=== PATIENT | female | born 1960 | race African-American/Black ===

== ENCOUNTER 2020-10-13 00:09 | Emergency (ER) | payer MEDICAID, OTHER ==
[~2020-10-13] VITALS: Ht 165.1 cm; Wt 54.0 kg
[~2020-10-13 00:09] MED LIST: ARIP20TA2 GT; ATEN-42 PO; BUDE6HFA IH; CARI350T28 PO; DOCU-138 PO; FLUO40CA49 PO; FLUT1DIS IH; FLUT1DIS3 IH; GEMF600T90 PO; IPRA42SP2 NS; LORA1TAB PO; QUET50TA PO; TEMA15CA PO
[2020-10-13] MEDS ORDERED: IBUPROFEN 600MG TABLET PO STA (01:14)
[2020-10-13 01:24] VITALS: BP 146/81
[2020-10-13] MEDS ORDERED: IBUP-2029 PO (03:28)
== END 2020-10-13 03:47 | disposition home or self-care (01) ==
LOC: ER 00:09
DX: M25.572 Pain in left ankle and joints of left foot (principal); M25.512 Pain in left shoulder; F31.9 Bipolar disorder, unspecified; J44.9 Chronic obstructive pulmonary disease, unspecified; I10 Essential (primary) hypertension; F20.9 Schizophrenia, unspecified; Z85.9 Personal history of malignant neoplasm, unspecified; Z98.890 Other specified postprocedural states; Z88.0 Allergy status to penicillin; V03.90XA Pedestrian on foot injured in collision with car, pick-up truck or van, unspecified whether traffic or nontraffic accident, initial encounter; Y93.89 Activity, other specified; Y92.488 Other paved roadways as the place of occurrence of the external cause
CPT/HCPCS: 73590; 73610; 99284

== ENCOUNTER 2020-10-13 05:43 | Emergency (ER) | payer MEDICAID ==
[~2020-10-13] VITALS: Ht 162.6 cm; Wt 48.7 kg
[~2020-10-13 05:43] MED LIST changes: +IBUP-2029 PO
[2020-10-13] MEDS ORDERED: CEFTRIAXONE 1 G PREMIX 50 ML IV ONE (07:15)
[2020-10-13] MEDS ORDERED: TETANUS, DIPHTHERIA, PERTUSSIS VAC/PF 0.5ML (>7YR OLD) IM ONE (07:15)
[2020-10-13] MEDS ORDERED: IBUPROFEN 600MG TABLET PO ONE (07:15)
[2020-10-13 07:37] LABS: *AMPHETAMINES SCREEN URINE NEGATIVE (NEGATIVE); *BARBITURATES SCREEN URINE NEGATIVE (NEGATIVE); *BENZODIAZEPINES SCREEN URINE NEGATIVE (NEGATIVE); *COCAINE SCREEN URINE PRESUMTIVE POSITIVE (NEGATIVE); METHADONE URINE SCREEN NEGATIVE (NEGATIVE)
[2020-10-13 07:38] LABS: CANNABINOID URINE SCREEN NEGATIVE (NEGATIVE); OPIATES URINE SCREEN NEGATIVE (NEGATIVE); PHENCYCLIDINE URINE SCREEN NEGATIVE (NEGATIVE)
[2020-10-13 07:45] LABS: CLARITY URINE CLEAR (CLEAR); COLOR URINE YELLOW (YELLOW); KETONES URINE NEGATIVE (NEGATIVE); LEUKOCYTE ESTERASE URINE 3+ (NEGATIVE); NITRITE URINE NEGATIVE (NEGATIVE); OCCULT BLOOD URINE NEGATIVE (NEGATIVE); PROTEIN URINE NEGATIVE (NEGATIVE); SPECIFIC GRAVITY URINE 1.016 (1.005-1.030); UROBILINOGEN URINE 0.2 E.U./dL (0.2-1.0)
[2020-10-13 07:58] LABS: BASOPHILS % 0.6 % (0.0-2.0); EOSINOPHILS % 3.1 % (0.0-5.0); HEMATOCRIT. 34.2 % (36.0-48.0); HEMOGLOBIN. 11.2 g/dL (12.0-16.0); LYMPHOCYTES % 33.3 % (20.0-50.0); MEAN CORPUSCULAR HEMOGLOBIN 30.2 pg (28.0-32.0); MEAN CORPUSCULAR VOLUME 92.3 fL (81.0-99.0); MEAN PLATELET VOLUME 8.1 fl (7.4-10.4); MONOCYTES % 6.1 % (2.0-8.0); NEUTROPHILS % 56.9 % (40.0-76.0); PLATELET 299 x1000/uL (130-400); RED BLOOD CELL COUNT 3.71 mill/uL (4.2-5.4); RED CELL DISTRIBUTION WIDTH 15.5 % (11.6-14.6)
[2020-10-13 08:02] LABS: CHLORIDE 109 mEq/L (98-107)
[2020-10-13 08:06] LABS: ETHANOL BLOOD < 10 mg/dL
[2020-10-13] MEDS ORDERED: LORAZEPAM 1MG TABLET PO ONE (18:15)
[2020-10-13] MEDS: OLANZAPINE 5MG TABLET PO SCH (19:08)
[2020-10-14] MEDS: SULFAMETHOXAZOLE/TRIMETHOPRIM 800/160MG TABLET PO SCH ×3 (02:04→19:51)
[2020-10-14] MEDS: OLANZAPINE 5MG TABLET PO SCH (10:02)
[2020-10-15 08:00] VITALS: BP 132/88
== END 2020-10-15 10:11 | disposition home or self-care (01) ==
LOC: ER 05:43
DX: F23 Brief psychotic disorder (principal); F14.129 Cocaine abuse with intoxication, unspecified; R45.851 Suicidal ideations; S96.812A Strain of other specified muscles and tendons at ankle and foot level, left foot, initial encounter; L03.116 Cellulitis of left lower limb; F31.9 Bipolar disorder, unspecified; F17.210 Nicotine dependence, cigarettes, uncomplicated; Z75.1 Person awaiting admission to adequate facility elsewhere; Z20.822 Contact with and (suspected) exposure to COVID-19; Z88.0 Allergy status to penicillin; V03.90XA Pedestrian on foot injured in collision with car, pick-up truck or van, unspecified whether traffic or nontraffic accident, initial encounter; Y93.89 Activity, other specified; Y92.488 Other paved roadways as the place of occurrence of the external cause
CPT/HCPCS: 36415; 80053; 80305; 80320; 81003; 85025; 87040; 90471; 90715; 96365; 99285; J0696; Z7610; G0480

== ENCOUNTER 2021-05-06 02:44 | Inpatient (IN) | payer MEDICAID, OTHER ==
[~2021-05-06] VITALS: Ht 162.6 cm; Wt 53.6 kg
[2021-05-06] VITALS (7 sets, daily range): BP systolic 106–143; BP diastolic 73–81
[2021-05-06] MEDS ORDERED: ASPIRIN 81MG TABLET PO ONE (03:00)
[2021-05-06] MEDS ORDERED: NITROGLYCERIN 0.4MG TABLET SL SL PRN (03:00)
[2021-05-06 03:43] LABS: BASOPHILS % 0.8 % (0.0-2.0); EOSINOPHILS % 3.6 % (0.0-5.0); HEMATOCRIT. 37.5 % (36.0-48.0); HEMOGLOBIN. 12.3 g/dL (12.0-16.0); LYMPHOCYTES % 39.5 % (20.0-50.0); MEAN CORPUSCULAR HEMOGLOBIN 31.2 pg (28.0-32.0); MEAN CORPUSCULAR VOLUME 95.6 fL (81.0-99.0); MEAN PLATELET VOLUME 9.3 fl (7.4-10.4); MONOCYTES % 7.1 % (2.0-8.0); PLATELET 235 x1000/uL (130-400); RED BLOOD CELL COUNT 3.92 mill/uL (4.2-5.4); RED CELL DISTRIBUTION WIDTH 13.7 % (11.6-14.6)
[2021-05-06 03:49] LABS: CHLORIDE 110 mEq/L (98-107)
[2021-05-06] MEDS ORDERED: MORPHINE SULFATE 2 MG/ML CPJ (NOT FOR IM USE) IV PRN (10:00)
[2021-05-06] MEDS ORDERED: DIPHENHYDRAMINE 50MG/ML VIAL IV PRN (10:00)
[2021-05-06] MEDS ORDERED: ENOXAPARIN 40MG/0.4ML SYR SUBCUT SCH (10:00)
[2021-05-06] MEDS ORDERED: ONDANSETRON HCL 4MG/2ML INJ IV PRN (10:00)
[2021-05-06] MEDS ORDERED: GUAIFENESIN 200MG/10ML SUGAR FREE UDC PO PRN (10:00)
[2021-05-06] MEDS ORDERED: ACETAMINOPHEN 325MG TABLET PO PRN (10:00)
[2021-05-06] MEDS ORDERED: CLONIDINE 0.1MG TABLET PO PRN (10:00)
[2021-05-06] MEDS ORDERED: LORAZEPAM 2MG/ML CPJ IV PRN (10:00)
[2021-05-06] MEDS ORDERED: HYDROCODONE/ACETAMINOPHEN 5/325MG TABLET PO PRN (10:00)
[2021-05-06] MEDS ORDERED: DOCUSATE SODIUM 100MG CAPSULE PO PRN (10:00)
[2021-05-06] MEDS ORDERED: IPRATROPIUM/ALBUTEROL 0.5-3(2.5)MG/3ML NEB NEB PRN (10:00)
[2021-05-06] MEDS ORDERED: NA PHOS,M-B/NA PHOS,DI-BA ENEMA 118ML PR PRN (10:00)
[2021-05-06] MEDS ORDERED: MAGNESIUM/ALUMINUM HYDROXIDE/SIMETHICONE 30ML UDC PO PRN (10:00)
[2021-05-06] MEDS ORDERED: NALOXONE HCL 0.4MG/ML VIAL IV PRN (10:15)
[2021-05-06] MEDS ORDERED: DEXTROSE 50% WATER 50ML SYRINGE IV PRN (13:30)
[2021-05-06] MEDS: BLOOD SUGAR DIAGNOSTIC STRIP TEST SCH ×2 (16:32→21:02)
[2021-05-06] MEDS: INSULIN LISPRO 100 UNITS/ML SUBCUT SCH ×2 (16:32→21:00)
[2021-05-06] MEDS: GEMFIBROZIL 600MG TABLET PO SCH (16:43)
[2021-05-06 17:40] LABS: CHLORIDE 106 mEq/L (98-107)
[2021-05-06] MEDS: AMLODIPINE 2.5MG TABLET PO SCH (20:54)
[2021-05-06 21:59] LABS: *AMPHETAMINES SCREEN URINE NEGATIVE (NEGATIVE); *BARBITURATES SCREEN URINE NEGATIVE (NEGATIVE); *BENZODIAZEPINES SCREEN URINE NEGATIVE (NEGATIVE); CANNABINOID URINE SCREEN NEGATIVE (NEGATIVE); METHADONE URINE SCREEN NEGATIVE (NEGATIVE); OPIATES URINE SCREEN NEGATIVE (NEGATIVE); PHENCYCLIDINE URINE SCREEN NEGATIVE (NEGATIVE)
[2021-05-06 22:00] LABS: *COCAINE SCREEN URINE PRESUMTIVE POSITIVE (NEGATIVE)
[2021-05-07] VITALS (12 sets, daily range): BP systolic 106–145; BP diastolic 60–88
[2021-05-07 05:30] LABS: BASOPHILS % 0.6 % (0.0-2.0); EOSINOPHILS % 4.3 % (0.0-5.0); HEMATOCRIT. 41.5 % (36.0-48.0); HEMOGLOBIN. 13.6 g/dL (12.0-16.0); LYMPHOCYTES % 49.4 % (20.0-50.0); MEAN CORPUSCULAR HEMOGLOBIN 30.7 pg (28.0-32.0); MEAN CORPUSCULAR VOLUME 93.4 fL (81.0-99.0); MEAN PLATELET VOLUME 9.5 fl (7.4-10.4); MONOCYTES % 8.6 % (2.0-8.0); NEUTROPHILS % 37.1 % (40.0-76.0); PLATELET 251 x1000/uL (130-400); RED BLOOD CELL COUNT 4.44 mill/uL (4.2-5.4); RED CELL DISTRIBUTION WIDTH 13.4 % (11.6-14.6)
[2021-05-07 06:00] LABS: CHLORIDE 109 mEq/L (98-107)
[2021-05-07 06:06] LABS: LDL CHOLESTEROL 85 mg/dL (5-100)
[2021-05-07 06:07] LABS: HDL CHOLESTEROL 91 mg/dL (40-59); T4 FREE 1.16 ng/dL (0.76-1.46)
[2021-05-07] MEDS: BLOOD SUGAR DIAGNOSTIC STRIP TEST SCH ×4 (06:50→20:57)
[2021-05-07] MEDS: INSULIN LISPRO 100 UNITS/ML SUBCUT SCH ×4 (07:20→20:57)
[2021-05-07] MEDS: ASPIRIN 81MG EC TABLET PO SCH (08:14)
[2021-05-07] MEDS: AMLODIPINE 2.5MG TABLET PO SCH ×2 (08:14→21:00)
[2021-05-07] MEDS: GEMFIBROZIL 600MG TABLET PO SCH ×2 (08:14→17:28)
[2021-05-07] MEDS: ENOXAPARIN 30MG/0.3ML SYR SUBCUT SCH (08:15)
[2021-05-08] VITALS (8 sets, daily range): BP systolic 99–133; BP diastolic 59–75
[2021-05-08] MEDS: INSULIN LISPRO 100 UNITS/ML SUBCUT SCH (06:16)
[2021-05-08] MEDS: BLOOD SUGAR DIAGNOSTIC STRIP TEST SCH (06:16)
[2021-05-08 07:20] LABS: BASOPHILS % 0.7 % (0.0-2.0); EOSINOPHILS % 4.1 % (0.0-5.0); HEMATOCRIT. 39.8 % (36.0-48.0); HEMOGLOBIN. 13.1 g/dL (12.0-16.0); LYMPHOCYTES % 42.3 % (20.0-50.0); MEAN CORPUSCULAR HEMOGLOBIN 30.7 pg (28.0-32.0); MEAN CORPUSCULAR VOLUME 93.1 fL (81.0-99.0); MEAN PLATELET VOLUME 9.4 fl (7.4-10.4); MONOCYTES % 8.1 % (2.0-8.0); NEUTROPHILS % 44.8 % (40.0-76.0); PLATELET 259 x1000/uL (130-400); RED BLOOD CELL COUNT 4.27 mill/uL (4.2-5.4); RED CELL DISTRIBUTION WIDTH 13.6 % (11.6-14.6)
[2021-05-08 07:33] LABS: CHLORIDE 107 mEq/L (98-107)
[2021-05-08] MEDS: AMLODIPINE 2.5MG TABLET PO SCH (08:10)
[2021-05-08] MEDS: ASPIRIN 81MG EC TABLET PO SCH (08:11)
[2021-05-08] MEDS: ENOXAPARIN 30MG/0.3ML SYR SUBCUT SCH (08:11)
[2021-05-08] MEDS: GEMFIBROZIL 600MG TABLET PO SCH (08:11)
== END 2021-05-08 11:55 | disposition home or self-care (01) | DRG 203 ==
LOC: ER 03:08 → ENRESERV 10:52 → 3WST 11:36
PROVIDERS: ADMIT Internal Medicine; ATTEND Internal Medicine
DX: M94.0 Chondrocostal junction syndrome [Tietze] (principal); I31.3 Pericardial effusion (noninflammatory); R64 Cachexia; E11.22 Type 2 diabetes mellitus with diabetic chronic kidney disease; E11.65 Type 2 diabetes mellitus with hyperglycemia; E78.00 Pure hypercholesterolemia, unspecified; E78.5 Hyperlipidemia, unspecified; I12.9 Hypertensive chronic kidney disease with stage 1 through stage 4 chronic kidney disease, or unspecified chronic kidney disease; I25.10 Atherosclerotic heart disease of native coronary artery without angina pectoris; F14.90 Cocaine use, unspecified, uncomplicated; F17.210 Nicotine dependence, cigarettes, uncomplicated; J44.9 Chronic obstructive pulmonary disease, unspecified; N18.9 Chronic kidney disease, unspecified; Z79.82 Long term (current) use of aspirin; Z68.20 Body mass index [BMI] 20.0-20.9, adult; Z88.0 Allergy status to penicillin; Z79.899 Other long term (current) drug therapy; Z71.6 Tobacco abuse counseling; Z88.6 Allergy status to analgesic agent
CPT/HCPCS: 36415; 71045; 80048; 80053; 80061; 80305; 82962; 83036; 83880; 84439; 84443; 84484; 85025; 93005; 93306; 99285; J1650

== ENCOUNTER 2021-08-08 08:52 | Emergency (ER) | payer OTHER ==
[~2021-08-08] VITALS: Ht 157.5 cm; Wt 54.0 kg
[~2021-08-08 08:52] MED LIST changes: -IBUP-2029 PO
[2021-08-08 10:10] LABS: CHLORIDE 110 mEq/L (98-107)
[2021-08-08 10:13] LABS: BASOPHILS % 0.6 % (0.0-2.0); EOSINOPHILS % 3.6 % (0.0-5.0); HEMATOCRIT. 40.6 % (36.0-48.0); HEMOGLOBIN. 13.8 g/dL (12.0-16.0); LYMPHOCYTES % 31.1 % (20.0-50.0); MEAN CORPUSCULAR HEMOGLOBIN 31.5 pg (28.0-32.0); MEAN CORPUSCULAR VOLUME 92.4 fL (81.0-99.0); MEAN PLATELET VOLUME 9.2 fl (7.4-10.4); MONOCYTES % 6.1 % (2.0-8.0); NEUTROPHILS % 58.6 % (40.0-76.0); PLATELET 278 x1000/uL (130-400); RED BLOOD CELL COUNT 4.39 mill/uL (4.2-5.4); RED CELL DISTRIBUTION WIDTH 14.2 % (11.6-14.6)
[2021-08-08 10:15] LABS: ETHANOL BLOOD < 10 mg/dL
[2021-08-08 10:17] LABS: CLARITY URINE CLEAR (CLEAR); COLOR URINE YELLOW (YELLOW); KETONES URINE TRACE (NEGATIVE); LEUKOCYTE ESTERASE URINE 2+ (NEGATIVE); NITRITE URINE NEGATIVE (NEGATIVE); OCCULT BLOOD URINE NEGATIVE (NEGATIVE); PROTEIN URINE NEGATIVE (NEGATIVE); UROBILINOGEN URINE 0.2 E.U./dL (0.2-1.0)
[2021-08-08 10:45] LABS: *BARBITURATES SCREEN URINE NEGATIVE (NEGATIVE); *BENZODIAZEPINES SCREEN URINE NEGATIVE (NEGATIVE); *COCAINE SCREEN URINE PRESUMTIVE POSITIVE (NEGATIVE); METHADONE URINE SCREEN NEGATIVE (NEGATIVE); OPIATES URINE SCREEN NEGATIVE (NEGATIVE)
[2021-08-08 10:46] LABS: *AMPHETAMINES SCREEN URINE PRESUMTIVE POSITIVE (NEGATIVE); CANNABINOID URINE SCREEN NEGATIVE (NEGATIVE); PHENCYCLIDINE URINE SCREEN NEGATIVE (NEGATIVE)
[2021-08-08] MEDS: FLUOXETINE HCL 10 MG CAPSULE PO SCH (13:24)
[2021-08-08] MEDS: OLANZAPINE 5MG TABLET PO SCH ×2 (13:24→21:00)
[2021-08-09] MEDS: FLUOXETINE HCL 10 MG CAPSULE PO SCH (09:08)
[2021-08-09] MEDS: OLANZAPINE 5MG TABLET PO SCH ×2 (09:08→21:42)
[2021-08-10] MEDS: OLANZAPINE 5MG TABLET PO SCH (08:51)
[2021-08-10] MEDS: FLUOXETINE HCL 10 MG CAPSULE PO SCH (08:51)
[2021-08-10 14:22] VITALS: BP 110/80
== END 2021-08-10 14:30 ==
LOC: ER 08:52
DX: R45.851 Suicidal ideations (principal); E78.00 Pure hypercholesterolemia, unspecified; E11.9 Type 2 diabetes mellitus without complications; Z20.822 Contact with and (suspected) exposure to COVID-19; Z88.0 Allergy status to penicillin; Z88.5 Allergy status to narcotic agent; Z79.899 Other long term (current) drug therapy; Z98.890 Other specified postprocedural states; Z86.59 Personal history of other mental and behavioral disorders
CPT/HCPCS: 36415; 80053; 80305; 80320; 81003; 85025; 99285; C9803; U0003; U0005; G0480

== ENCOUNTER 2021-08-30 00:20 | Emergency (ER) | payer OTHER ==
[~2021-08-30] VITALS: Ht 165.1 cm; Wt 64.0 kg
[2021-08-30 03:04] LABS: *AMPHETAMINES SCREEN URINE PRESUMTIVE POSITIVE (NEGATIVE); *BARBITURATES SCREEN URINE NEGATIVE (NEGATIVE); *BENZODIAZEPINES SCREEN URINE NEGATIVE (NEGATIVE); *COCAINE SCREEN URINE PRESUMTIVE POSITIVE (NEGATIVE); CANNABINOID URINE SCREEN NEGATIVE (NEGATIVE); PHENCYCLIDINE URINE SCREEN NEGATIVE (NEGATIVE)
[2021-08-30 03:05] LABS: METHADONE URINE SCREEN NEGATIVE (NEGATIVE); OPIATES URINE SCREEN NEGATIVE (NEGATIVE)
[2021-08-30 04:13] LABS: BASOPHILS % 0.5 % (0.0-2.0); EOSINOPHILS % 3.4 % (0.0-5.0); HEMATOCRIT. 32.8 % (36.0-48.0); HEMOGLOBIN. 11.2 g/dL (12.0-16.0); LYMPHOCYTES % 43.5 % (20.0-50.0); MEAN CORPUSCULAR HEMOGLOBIN 31.6 pg (28.0-32.0); MEAN CORPUSCULAR VOLUME 92.7 fL (81.0-99.0); MEAN PLATELET VOLUME 8.2 fl (7.4-10.4); MONOCYTES % 6.8 % (2.0-8.0); NEUTROPHILS % 45.8 % (40.0-76.0); PLATELET 338 x1000/uL (130-400); RED BLOOD CELL COUNT 3.54 mill/uL (4.2-5.4); RED CELL DISTRIBUTION WIDTH 13.5 % (11.6-14.6)
[2021-08-30 04:47] LABS: CHLORIDE 113 mEq/L (98-107)
[2021-08-30 04:51] LABS: ETHANOL BLOOD < 10 mg/dL
[2021-08-30 20:07] VITALS: BP 115/67
[2021-08-30] MEDS ORDERED: TRAZODONE HCL 50MG TABLET PO SCH (21:00)
[2021-08-31] MEDS ORDERED: ARIPIPRAZOLE 5MG TABLET PO SCH (09:00)
== END 2021-08-30 20:23 ==
LOC: ER 00:20
DX: T40.5X1A Poisoning by cocaine, accidental (unintentional), initial encounter (principal); T43.621A Poisoning by amphetamines, accidental (unintentional), initial encounter; F20.9 Schizophrenia, unspecified; R45.851 Suicidal ideations; E11.22 Type 2 diabetes mellitus with diabetic chronic kidney disease; I12.9 Hypertensive chronic kidney disease with stage 1 through stage 4 chronic kidney disease, or unspecified chronic kidney disease; N18.9 Chronic kidney disease, unspecified; E78.00 Pure hypercholesterolemia, unspecified; Z20.822 Contact with and (suspected) exposure to COVID-19; Z85.038 Personal history of other malignant neoplasm of large intestine; Z88.0 Allergy status to penicillin; Z88.5 Allergy status to narcotic agent; Z75.1 Person awaiting admission to adequate facility elsewhere; Y92.488 Other paved roadways as the place of occurrence of the external cause
CPT/HCPCS: 36415; 80053; 80305; 80307; 80320; 80329; 85025; 93005; 99285; C9803; U0003; U0005; G0480

== ENCOUNTER 2022-03-29 12:54 | Inpatient (IN) | payer MEDICAID, OTHER ==
[~2022-03-29] VITALS: Ht 152.4 cm; Wt 52.7 kg
[2022-03-29] MEDS ORDERED: ACETAMINOPHEN 325MG TABLET PO ONE (15:00)
[2022-03-29 15:55] LABS: CHLORIDE 96 mEq/L (98-107); HEMATOCRIT. 35.8 % (36.0-48.0); HEMOGLOBIN. 12.4 g/dL (12.0-16.0); MEAN CORPUSCULAR HEMOGLOBIN 32.2 pg (28.0-32.0); MEAN CORPUSCULAR VOLUME 92.8 fL (81.0-99.0); MEAN PLATELET VOLUME 8.9 fl (7.4-10.4); PLATELET 247 x1000/uL (130-400); RED BLOOD CELL COUNT 3.86 mill/uL (4.2-5.4); RED CELL DISTRIBUTION WIDTH 13.4 % (11.6-14.6)
[2022-03-29 19:12] LABS: PLATELET ESTIMATE NORMAL
[2022-03-29] MEDS ORDERED: VANCOMYCIN 1G PREMIX 200 ML IV SCH (19:45)
[2022-03-29] MEDS ORDERED: LEVOFLOXACIN 500MG PREMIX 100 ML IV ONE (19:45)
[2022-03-29] MEDS ORDERED: SODIUM CHLORIDE 0.9% 1000ML BAG (SEPSIS BOLUS) IV ONE (20:00)
[2022-03-29] MEDS ORDERED: VANCOMYCIN 1,000 MG in DEXT 5% WATER 250 ML IV NR (22:00)
[2022-03-29 23:00] VITALS: BP 121/73
[2022-03-30] MEDS ORDERED: DEXTROSE 50% WATER 50ML SYRINGE IV PRN
[2022-03-30] MEDS ORDERED: ACETAMINOPHEN 325MG TABLET PO PRN
[2022-03-30] MEDS: HYDROCODONE/ACETAMINOPHEN 5/325MG TABLET PO PRN ×2 (00:22→08:11)
[2022-03-30 01:47] LABS: CLARITY URINE CLOUDY (CLEAR); COLOR URINE YELLOW (YELLOW); KETONES URINE NEGATIVE (NEGATIVE); LEUKOCYTE ESTERASE URINE 3+ (NEGATIVE); NITRITE URINE NEGATIVE (NEGATIVE); OCCULT BLOOD URINE NEGATIVE (NEGATIVE); PH URINE 5.5 (4.5-8.0); PROTEIN URINE 2+ (NEGATIVE); SPECIFIC GRAVITY URINE 1.018 (1.005-1.030)
[2022-03-30 02:02] LABS: *AMPHETAMINES SCREEN URINE NEGATIVE (NEGATIVE); *BARBITURATES SCREEN URINE NEGATIVE (NEGATIVE); *BENZODIAZEPINES SCREEN URINE NEGATIVE (NEGATIVE); *COCAINE SCREEN URINE PRESUMTIVE POSITIVE (NEGATIVE); CANNABINOID URINE SCREEN NEGATIVE (NEGATIVE); METHADONE URINE SCREEN NEGATIVE (NEGATIVE); OPIATES URINE SCREEN NEGATIVE (NEGATIVE); PHENCYCLIDINE URINE SCREEN NEGATIVE (NEGATIVE)
[2022-03-30 04:00] VITALS: BP 108/71
[2022-03-30] MEDS: BLOOD SUGAR DIAGNOSTIC STRIP TEST SCH ×4 (06:22→20:45)
[2022-03-30] MEDS: INSULIN LISPRO 100 UNITS/ML SUBCUT SCH ×4 (06:22→20:45)
[2022-03-30 07:41] LABS: BASOPHILS % 0.1 % (0.0-2.0); EOSINOPHILS % 0.1 % (0.0-5.0); HEMATOCRIT. 34.4 % (36.0-48.0); HEMOGLOBIN. 11.6 g/dL (12.0-16.0); LYMPHOCYTES % 7.4 % (20.0-50.0); MEAN CORPUSCULAR HEMOGLOBIN 31.6 pg (28.0-32.0); MEAN CORPUSCULAR VOLUME 93.9 fL (81.0-99.0); MEAN PLATELET VOLUME 9.6 fl (7.4-10.4); MONOCYTES % 3.9 % (2.0-8.0); NEUTROPHILS % 88.5 % (40.0-76.0); PLATELET 255 x1000/uL (130-400); RED BLOOD CELL COUNT 3.67 mill/uL (4.2-5.4); RED CELL DISTRIBUTION WIDTH 13.2 % (11.6-14.6)
[2022-03-30 07:44] LABS: CHLORIDE 101 mEq/L (98-107)
[2022-03-30 08:00] VITALS: BP 109/72
[2022-03-30] MEDS ORDERED: NALOXONE HCL 0.4MG/ML VIAL IV PRN (09:15)
[2022-03-30] MEDS ORDERED: POTASSIUM CHLORIDE 20MEQ TABLET SR PO NR (11:00)
[2022-03-30] MEDS: ARIPIPRAZOLE 5MG TABLET PO SCH (11:17)
[2022-03-30] MEDS: FLUOXETINE HCL 20MG CAPSULE PO SCH (11:17)
[2022-03-30 12:00] VITALS: BP 106/65
[2022-03-30] MEDS: CYCLOBENZAPRINE 10MG TABLET PO SCH ×2 (13:36→21:33)
[2022-03-30 16:00] VITALS: BP 99/59
[2022-03-30] MEDS ORDERED: CEFTRIAXONE 1 G PREMIX 50 ML IV SCH (17:15)
[2022-03-30] MEDS: GEMFIBROZIL 600MG TABLET PO SCH (17:46)
[2022-03-30] MEDS: HYDROCODONE/ACETAMINOPHEN 10/325MG TABLET PO PRN (17:46)
[2022-03-30 20:00] VITALS: BP 99/56
[2022-03-30] MEDS: TEMAZEPAM 15MG CAPSULE PO SCH (20:44)
[2022-03-30] MEDS: QUETIAPINE FUMARATE 50MG TABLET PO SCH (20:44)
[2022-03-30] MEDS: LEVOFLOXACIN 250MG PREMIX 100 ML IV SCH (20:45)
[2022-03-30] MEDS: VANCOMYCIN 1,000 MG in DEXT 5% WATER 250 ML IV SCH (21:33)
[2022-03-31] VITALS: BP 99/52
[2022-03-31 04:00] VITALS: BP 98/55
[2022-03-31] MEDS: CYCLOBENZAPRINE 10MG TABLET PO SCH (06:16)
[2022-03-31] MEDS: INSULIN LISPRO 100 UNITS/ML SUBCUT SCH ×4 (06:17→20:34)
[2022-03-31] MEDS: BLOOD SUGAR DIAGNOSTIC STRIP TEST SCH ×4 (06:17→20:34)
[2022-03-31 07:43] VITALS: BP 90/60
[2022-03-31 07:50] LABS: BASOPHILS % 0.1 % (0.0-2.0); EOSINOPHILS % 0.6 % (0.0-5.0); HEMATOCRIT. 33.9 % (36.0-48.0); HEMOGLOBIN. 11.2 g/dL (12.0-16.0); LYMPHOCYTES % 10.9 % (20.0-50.0); MEAN CORPUSCULAR HEMOGLOBIN 31.1 pg (28.0-32.0); MEAN CORPUSCULAR VOLUME 93.9 fL (81.0-99.0); MEAN PLATELET VOLUME 8.9 fl (7.4-10.4); MONOCYTES % 5.4 % (2.0-8.0); PLATELET 267 x1000/uL (130-400); RED BLOOD CELL COUNT 3.61 mill/uL (4.2-5.4); RED CELL DISTRIBUTION WIDTH 13.6 % (11.6-14.6)
[2022-03-31] MEDS: GEMFIBROZIL 600MG TABLET PO SCH ×2 (08:24→16:49)
[2022-03-31] MEDS: ARIPIPRAZOLE 5MG TABLET PO SCH (08:24)
[2022-03-31] MEDS: FLUOXETINE HCL 20MG CAPSULE PO SCH (08:25)
[2022-03-31 08:36] LABS: CHLORIDE 104 mEq/L (98-107)
[2022-03-31 11:54] VITALS: BP 125/77
[2022-03-31] MEDS ORDERED: BACLOFEN 10MG TABLET PO PRN (13:30)
[2022-03-31 15:45] VITALS: BP 100/50
[2022-03-31] MEDS: HYDROCODONE/ACETAMINOPHEN 5/325MG TABLET PO PRN (18:08)
[2022-03-31 20:00] VITALS: BP 123/81
[2022-03-31] MEDS: QUETIAPINE FUMARATE 50MG TABLET PO SCH (20:33)
[2022-03-31] MEDS: TEMAZEPAM 15MG CAPSULE PO SCH (20:33)
[2022-03-31] MEDS: LEVOFLOXACIN 250MG PREMIX 100 ML IV SCH (20:33)
[2022-03-31] MEDS: VANCOMYCIN 1,000 MG in DEXT 5% WATER 250 ML IV SCH (22:37)
[2022-04-01] VITALS: BP 132/82
[2022-04-01 04:00] VITALS: BP 118/68
[2022-04-01] MEDS: HYDROCODONE/ACETAMINOPHEN 10/325MG TABLET PO PRN ×2 (06:37→23:36)
[2022-04-01] MEDS: INSULIN LISPRO 100 UNITS/ML SUBCUT SCH ×4 (06:41→21:00)
[2022-04-01] MEDS: BLOOD SUGAR DIAGNOSTIC STRIP TEST SCH ×4 (06:41→21:00)
[2022-04-01 07:38] LABS: HEMATOCRIT. 34.1 % (36.0-48.0); HEMOGLOBIN. 11.5 g/dL (12.0-16.0); MEAN CORPUSCULAR VOLUME 94.6 fL (81.0-99.0); MEAN PLATELET VOLUME 8.8 fl (7.4-10.4); PLATELET 306 x1000/uL (130-400); RED BLOOD CELL COUNT 3.61 mill/uL (4.2-5.4); RED CELL DISTRIBUTION WIDTH 13.4 % (11.6-14.6)
[2022-04-01 08:00] VITALS: BP 122/80
[2022-04-01 08:50] LABS: CHLORIDE 102 mEq/L (98-107)
[2022-04-01] MEDS: ARIPIPRAZOLE 5MG TABLET PO SCH (09:03)
[2022-04-01] MEDS: GEMFIBROZIL 600MG TABLET PO SCH ×2 (09:03→18:12)
[2022-04-01] MEDS: FLUOXETINE HCL 20MG CAPSULE PO SCH (09:03)
[2022-04-01 10:32] LABS: PLATELET ESTIMATE NORMAL
[2022-04-01 12:00] VITALS: BP 116/73
[2022-04-01 16:00] VITALS: BP 125/77
[2022-04-01] MEDS: VANCOMYCIN 750MG PREMIX 150 ML IV SCH (18:12)
[2022-04-01 20:00] VITALS: BP 136/84
[2022-04-01] MEDS: LEVOFLOXACIN 250MG PREMIX 100 ML IV SCH (21:00)
[2022-04-01] MEDS: QUETIAPINE FUMARATE 50MG TABLET PO SCH (23:36)
[2022-04-01] MEDS: TEMAZEPAM 15MG CAPSULE PO SCH (23:36)
[2022-04-02] VITALS: BP 128/60
[2022-04-02 04:00] VITALS: BP 131/64
[2022-04-02] MEDS: HYDROCODONE/ACETAMINOPHEN 10/325MG TABLET PO PRN ×2 (05:26→12:42)
[2022-04-02] MEDS: INSULIN LISPRO 100 UNITS/ML SUBCUT SCH ×4 (06:29→21:00)
[2022-04-02] MEDS: BLOOD SUGAR DIAGNOSTIC STRIP TEST SCH ×4 (06:29→21:00)
[2022-04-02 07:44] LABS: HEMATOCRIT. 34.9 % (36.0-48.0); HEMOGLOBIN. 11.9 g/dL (12.0-16.0); MEAN CORPUSCULAR HEMOGLOBIN 32.1 pg (28.0-32.0); MEAN CORPUSCULAR VOLUME 93.8 fL (81.0-99.0); MEAN PLATELET VOLUME 8.5 fl (7.4-10.4); PLATELET 369 x1000/uL (130-400); RED BLOOD CELL COUNT 3.72 mill/uL (4.2-5.4); RED CELL DISTRIBUTION WIDTH 13.5 % (11.6-14.6)
[2022-04-02 08:00] VITALS: BP 100/69
[2022-04-02] MEDS: VANCOMYCIN 750MG PREMIX 150 ML IV SCH (10:00)
[2022-04-02] MEDS: FLUOXETINE HCL 20MG CAPSULE PO SCH (10:22)
[2022-04-02] MEDS: GEMFIBROZIL 600MG TABLET PO SCH ×2 (10:22→18:23)
[2022-04-02] MEDS: ARIPIPRAZOLE 5MG TABLET PO SCH (10:23)
[2022-04-02] MEDS: VANCOMYCIN 1,000 MG in DEXT 5% WATER 250 ML IV SCH (10:55)
[2022-04-02 11:34] LABS: CHLORIDE 101 mEq/L (98-107)
[2022-04-02 12:00] VITALS: BP 114/64
[2022-04-02 14:05] LABS: NUCLEATED RED BLOOD CELLS 1 /100 WBC; PLATELET ESTIMATE NORMAL
[2022-04-02 16:00] VITALS: BP 107/69
[2022-04-02] MEDS: MORPHINE SULFATE 2 MG/ML CPJ (NOT FOR IM USE) IV PRN (18:12)
[2022-04-02 20:15] VITALS: BP 119/68
[2022-04-02] MEDS: QUETIAPINE FUMARATE 50MG TABLET PO SCH (21:00)
[2022-04-02] MEDS: TEMAZEPAM 15MG CAPSULE PO SCH (21:04)
[2022-04-02] MEDS: LEVOFLOXACIN 250MG PREMIX 100 ML IV SCH (21:04)
[2022-04-03] VITALS (7 sets, daily range): BP systolic 91–150; BP diastolic 54–91
[2022-04-03] MEDS: VANCOMYCIN 750MG PREMIX 150 ML IV SCH ×2 (06:05→22:11)
[2022-04-03] MEDS: BLOOD SUGAR DIAGNOSTIC STRIP TEST SCH ×4 (06:06→21:00)
[2022-04-03] MEDS: INSULIN LISPRO 100 UNITS/ML SUBCUT SCH ×4 (06:06→21:00)
[2022-04-03] MEDS: MORPHINE SULFATE 2 MG/ML CPJ (NOT FOR IM USE) IV PRN ×3 (06:20→22:11)
[2022-04-03] MEDS: FLUOXETINE HCL 20MG CAPSULE PO SCH (09:27)
[2022-04-03] MEDS: GEMFIBROZIL 600MG TABLET PO SCH ×2 (09:27→18:49)
[2022-04-03] MEDS: ARIPIPRAZOLE 5MG TABLET PO SCH (09:27)
[2022-04-03 11:33] LABS: BASOPHILS % 0.7 % (0.0-2.0); EOSINOPHILS % 1.2 % (0.0-5.0); HEMATOCRIT. 36.5 % (36.0-48.0); HEMOGLOBIN. 12.2 g/dL (12.0-16.0); LYMPHOCYTES % 18.6 % (20.0-50.0); MEAN CORPUSCULAR HEMOGLOBIN 31.5 pg (28.0-32.0); MEAN CORPUSCULAR VOLUME 94.5 fL (81.0-99.0); MEAN PLATELET VOLUME 8.5 fl (7.4-10.4); MONOCYTES % 4.8 % (2.0-8.0); NEUTROPHILS % 74.7 % (40.0-76.0); PLATELET 400 x1000/uL (130-400); RED BLOOD CELL COUNT 3.86 mill/uL (4.2-5.4); RED CELL DISTRIBUTION WIDTH 13.9 % (11.6-14.6)
[2022-04-03 11:40] LABS: CHLORIDE 101 mEq/L (98-107)
[2022-04-03] MEDS: QUETIAPINE FUMARATE 50MG TABLET PO SCH (21:00)
[2022-04-03] MEDS: TEMAZEPAM 15MG CAPSULE PO SCH (21:32)
[2022-04-03] MEDS: LEVOFLOXACIN 250MG PREMIX 100 ML IV SCH (21:32)
[2022-04-04 00:10] VITALS: BP 101/68
[2022-04-04 04:00] VITALS: BP 106/71
[2022-04-04 05:24] LABS: CHLORIDE 104 mEq/L (98-107)
[2022-04-04 05:29] LABS: BASOPHILS % 0.7 % (0.0-2.0); EOSINOPHILS % 1.6 % (0.0-5.0); HEMATOCRIT. 36.2 % (36.0-48.0); HEMOGLOBIN. 11.9 g/dL (12.0-16.0); LYMPHOCYTES % 19.7 % (20.0-50.0); MEAN CORPUSCULAR HEMOGLOBIN 31.4 pg (28.0-32.0); MEAN CORPUSCULAR VOLUME 95.3 fL (81.0-99.0); MEAN PLATELET VOLUME 8.7 fl (7.4-10.4); MONOCYTES % 5.3 % (2.0-8.0); NEUTROPHILS % 72.7 % (40.0-76.0); PLATELET 364 x1000/uL (130-400); RED CELL DISTRIBUTION WIDTH 14.1 % (11.6-14.6)
[2022-04-04] MEDS: MORPHINE SULFATE 2 MG/ML CPJ (NOT FOR IM USE) IV PRN (06:14)
[2022-04-04] MEDS: BLOOD SUGAR DIAGNOSTIC STRIP TEST SCH ×2 (06:14→12:10)
[2022-04-04] MEDS: INSULIN LISPRO 100 UNITS/ML SUBCUT SCH ×2 (06:14→12:40)
[2022-04-04 08:00] VITALS: BP 105/69
[2022-04-04] MEDS: FLUOXETINE HCL 20MG CAPSULE PO SCH (08:24)
[2022-04-04] MEDS: ARIPIPRAZOLE 5MG TABLET PO SCH (08:25)
[2022-04-04] MEDS: GEMFIBROZIL 600MG TABLET PO SCH (08:25)
[2022-04-04] MEDS ORDERED: THIAMINE HCL 100MG TABLET PO SCH (09:00)
[2022-04-04] MEDS ORDERED: MULTIVITAMINS,THER W-MINERALS TABLET PO SCH (09:00)
[2022-04-04] MEDS ORDERED: POLYETHYLENE GLYCOL 3350 (17GM) 1 DOSE PACK PO SCH (09:30)
[2022-04-04 12:00] VITALS: BP 107/58
[2022-04-04] MEDS ORDERED: HYDR-4001 MT (14:36)
[2022-04-04 16:00] VITALS: BP 100/68
[2022-04-04 18:10] VITALS: BP 100/68
== END 2022-04-04 16:25 | disposition home or self-care (01) | DRG 720 ==
LOC: ER 12:54 → 8WST 20:31 → EDBEDREQ 20:35 → EDBEDREQTM 20:35 → ENRESERV 21:30 → 8WST 22:27
PROVIDERS: ADMIT Internal Medicine; ATTEND Internal Medicine
DX: A41.9 Sepsis, unspecified organism (principal); N17.9 Acute kidney failure, unspecified; E43 Unspecified severe protein-calorie malnutrition; D63.1 Anemia in chronic kidney disease; E88.09 Other disorders of plasma-protein metabolism, not elsewhere classified; E11.22 Type 2 diabetes mellitus with diabetic chronic kidney disease; F20.9 Schizophrenia, unspecified; F31.9 Bipolar disorder, unspecified; I12.9 Hypertensive chronic kidney disease with stage 1 through stage 4 chronic kidney disease, or unspecified chronic kidney disease; Z20.822 Contact with and (suspected) exposure to COVID-19; N18.9 Chronic kidney disease, unspecified; N12 Tubulo-interstitial nephritis, not specified as acute or chronic; M06.9 Rheumatoid arthritis, unspecified; J43.9 Emphysema, unspecified; E87.6 Hypokalemia; E78.00 Pure hypercholesterolemia, unspecified; N39.41 Urge incontinence; Z88.8 Allergy status to other drugs, medicaments and biological substances; Z85.038 Personal history of other malignant neoplasm of large intestine; Z88.0 Allergy status to penicillin
CPT/HCPCS: 36415; 71045; 74176; 80048; 80053; 80202; 80305; 81003; 82962; 83036; 83880; 84145; 84484; 85025; 87426; 87804; 93005; 99291; C1893; C9803; J1956; J2270; J3370; J7030; J7060

== ENCOUNTER 2022-05-28 09:25 | Emergency (ER) | payer MEDICAID, OTHER ==
[~2022-05-28] VITALS: Ht 157.5 cm; Wt 55.0 kg
[~2022-05-28 09:25] MED LIST changes: -ATEN-42 PO; +HYDR-4001 MT
[2022-05-28] MEDS ORDERED: OLANZAPINE 10 MG/VIAL IM PRN (09:45)
[2022-05-28 10:27] LABS: CLARITY URINE CLEAR (CLEAR); COLOR URINE YELLOW (YELLOW); KETONES URINE NEGATIVE (NEGATIVE); LEUKOCYTE ESTERASE URINE 1+ (NEGATIVE); NITRITE URINE NEGATIVE (NEGATIVE); OCCULT BLOOD URINE NEGATIVE (NEGATIVE); PH URINE 5.5 (4.5-8.0); PROTEIN URINE TRACE (NEGATIVE); SPECIFIC GRAVITY URINE 1.018 (1.005-1.030); UROBILINOGEN URINE 0.2 E.U./dL (0.2-1.0)
[2022-05-28 10:31] LABS: PROTHROMBIN TIME 10.8 sec (9.6-11.0)
[2022-05-28 10:35] LABS: CHLORIDE 110 mEq/L (98-107)
[2022-05-28 10:42] LABS: *AMPHETAMINES SCREEN URINE NEGATIVE (NEGATIVE); *BARBITURATES SCREEN URINE NEGATIVE (NEGATIVE); *BENZODIAZEPINES SCREEN URINE NEGATIVE (NEGATIVE); *COCAINE SCREEN URINE PRESUMTIVE POSITIVE (NEGATIVE); CANNABINOID URINE SCREEN NEGATIVE (NEGATIVE); METHADONE URINE SCREEN NEGATIVE (NEGATIVE); OPIATES URINE SCREEN NEGATIVE (NEGATIVE); PHENCYCLIDINE URINE SCREEN NEGATIVE (NEGATIVE)
[2022-05-28 10:46] LABS: BASOPHILS % 0.6 % (0.0-2.0); EOSINOPHILS % 2.3 % (0.0-5.0); HEMATOCRIT. 36.5 % (36.0-48.0); HEMOGLOBIN. 12.6 g/dL (12.0-16.0); LYMPHOCYTES % 32.4 % (20.0-50.0); MEAN CORPUSCULAR HEMOGLOBIN 32.2 pg (28.0-32.0); MEAN CORPUSCULAR VOLUME 93.2 fL (81.0-99.0); MEAN PLATELET VOLUME 8.6 fl (7.4-10.4); MONOCYTES % 6.3 % (2.0-8.0); NEUTROPHILS % 58.4 % (40.0-76.0); PLATELET 317 x1000/uL (130-400); RED BLOOD CELL COUNT 3.92 mill/uL (4.2-5.4); RED CELL DISTRIBUTION WIDTH 13.2 % (11.6-14.6)
[2022-05-28 10:48] LABS: CREATINE KINASE 98 IU/L (26-192); ETHANOL BLOOD < 10 mg/dL
[2022-05-28] MEDS ORDERED: POTASSIUM CHLORIDE 20MEQ TABLET SR PO ONE (11:30)
[2022-05-28] MEDS: POTASSIUM CHLORIDE 20MEQ TABLET SR PO NR ×2 (13:58→13:59)
[2022-05-29] MEDS: FLUOXETINE HCL 10 MG CAPSULE PO SCH (11:17)
[2022-05-29] MEDS: ARIPIPRAZOLE 5MG TABLET PO SCH ×2 (11:17→21:00)
[2022-05-30] MEDS ORDERED: OLANZAPINE 5MG TABLET ODT PO ONE (01:00)
[2022-05-30] MEDS ORDERED: OLANZAPINE 5MG TABLET ODT PO NR (01:45)
[2022-05-30] MEDS: ARIPIPRAZOLE 5MG TABLET PO SCH (08:27)
[2022-05-30] MEDS: FLUOXETINE HCL 10 MG CAPSULE PO SCH (08:27)
[2022-05-30 15:30] VITALS: BP 122/82
== END 2022-05-30 15:44 ==
LOC: ER 09:25
DX: F33.1 Major depressive disorder, recurrent, moderate (principal); R45.851 Suicidal ideations; F20.9 Schizophrenia, unspecified; F14.10 Cocaine abuse, uncomplicated; Z59.00 Homelessness unspecified; Z62.890 Parent-child estrangement NEC; I10 Essential (primary) hypertension; E11.9 Type 2 diabetes mellitus without complications; E78.5 Hyperlipidemia, unspecified; Z20.822 Contact with and (suspected) exposure to COVID-19; Z91.14 Patient's other noncompliance with medication regimen; Z88.0 Allergy status to penicillin; Z88.5 Allergy status to narcotic agent
CPT/HCPCS: 36415; 71045; 80053; 80305; 80307; 80320; 80329; 81003; 82550; 82962; 83690; 84443; 85025; 85610; 87426; 93005; 99285; C9803; U0003; U0005; G0480

== ENCOUNTER 2022-09-23 01:36 | Emergency (ER) | payer OTHER ==
[~2022-09-23] VITALS: Ht 157.5 cm; Wt 70.0 kg
[2022-09-23] MEDS ORDERED: ACETAMINOPHEN 325MG TABLET PO ONE (02:00)
[2022-09-23] MEDS ORDERED: LIDOCAINE 5% PATCH TOP SCH (02:00)
[2022-09-23] MEDS ORDERED: HYDROCODONE/ACETAMINOPHEN 5/325MG TABLET PO ONE (02:45)
[2022-09-23] MEDS ORDERED: LIDO700A15 TP (02:48)
[2022-09-23] MEDS ORDERED: ACET-2708 MT (02:48)
[2022-09-23 03:51] VITALS: BP 118/76
== END 2022-09-23 05:21 | disposition home or self-care (01) ==
LOC: ER 02:00
DX: M25.512 Pain in left shoulder (principal); E11.9 Type 2 diabetes mellitus without complications; I10 Essential (primary) hypertension; F14.10 Cocaine abuse, uncomplicated; Z79.899 Other long term (current) drug therapy
CPT/HCPCS: 73030; 99284

== ENCOUNTER 2022-09-25 01:35 | Emergency (ER) | payer OTHER ==
[~2022-09-25] VITALS: Ht 152.4 cm; Wt 60.0 kg
[~2022-09-25 01:35] MED LIST changes: +ACET-2708 MT; +LIDO700A15 TP
[2022-09-25 03:08] LABS: CLARITY URINE CLEAR (CLEAR); COLOR URINE YELLOW (YELLOW); KETONES URINE TRACE (NEGATIVE); LEUKOCYTE ESTERASE URINE 3+ (NEGATIVE); NITRITE URINE NEGATIVE (NEGATIVE); OCCULT BLOOD URINE NEGATIVE (NEGATIVE); PROTEIN URINE NEGATIVE (NEGATIVE); SPECIFIC GRAVITY URINE 1.025 (1.005-1.030); UROBILINOGEN URINE 0.2 E.U./dL (0.2-1.0)
[2022-09-25 03:11] LABS: BASOPHILS % 0.6 % (0.0-2.0); HEMATOCRIT. 35.4 % (36.0-48.0); HEMOGLOBIN. 12.3 g/dL (12.0-16.0); LYMPHOCYTES % 27.1 % (20.0-50.0); MEAN CORPUSCULAR HEMOGLOBIN 32.5 pg (28.0-32.0); MEAN CORPUSCULAR VOLUME 93.4 fL (81.0-99.0); MEAN PLATELET VOLUME 9.2 fl (7.4-10.4); MONOCYTES % 7.7 % (2.0-8.0); NEUTROPHILS % 61.6 % (40.0-76.0); PLATELET 312 x1000/uL (130-400); RED BLOOD CELL COUNT 3.79 mill/uL (4.2-5.4); RED CELL DISTRIBUTION WIDTH 14.2 % (11.6-14.6)
[2022-09-25 03:18] LABS: CHLORIDE 108 mEq/L (98-107)
[2022-09-25 03:19] LABS: *AMPHETAMINES SCREEN URINE PRESUMTIVE POSITIVE (NEGATIVE); *BARBITURATES SCREEN URINE NEGATIVE (NEGATIVE); *BENZODIAZEPINES SCREEN URINE NEGATIVE (NEGATIVE); *COCAINE SCREEN URINE PRESUMTIVE POSITIVE (NEGATIVE); CANNABINOID URINE SCREEN NEGATIVE (NEGATIVE); METHADONE URINE SCREEN NEGATIVE (NEGATIVE); OPIATES URINE SCREEN NEGATIVE (NEGATIVE); PHENCYCLIDINE URINE SCREEN NEGATIVE (NEGATIVE)
[2022-09-25 03:25] LABS: ETHANOL BLOOD < 10 mg/dL
[2022-09-26] MEDS ORDERED: SULFAMETHOXAZOLE/TRIMETHOPRIM 800/160MG TABLET PO ONE (05:15)
[2022-09-26 06:21] VITALS: BP 120/80
== END 2022-09-26 06:58 | disposition home or self-care (01) ==
LOC: ER 02:00
DX: R45.851 Suicidal ideations (principal); M19.90 Unspecified osteoarthritis, unspecified site; E11.9 Type 2 diabetes mellitus without complications; I10 Essential (primary) hypertension; F20.9 Schizophrenia, unspecified; F17.210 Nicotine dependence, cigarettes, uncomplicated; Z20.822 Contact with and (suspected) exposure to COVID-19; Z88.0 Allergy status to penicillin; Z88.5 Allergy status to narcotic agent
CPT/HCPCS: 36415; 80053; 80305; 80307; 80320; 80329; 81003; 85025; 87426; 99285; C9803; G0480

== ENCOUNTER 2023-03-05 03:03 | Emergency (ER) | payer OTHER ==
[~2023-03-05] VITALS: Ht 160 cm; Wt 69.0 kg
[2023-03-05 03:17] VITALS: BP 126/78; PULSE 89; RESP 18; TEMP 98.6; O2SAT 99
[2023-03-05 05:27] LABS: BASOPHILS % 0.6 % (0.0-2.0); EOSINOPHILS % 2.4 % (0.0-5.0); HEMATOCRIT. 37.5 % (36.0-48.0); HEMOGLOBIN. 12.8 g/dL (12.0-16.0); MEAN CORPUSCULAR HEMOGLOBIN 32.3 pg (28.0-32.0); MEAN PLATELET VOLUME 9.3 fl (7.4-10.4); MONOCYTES % 5.5 % (2.0-8.0); NEUTROPHILS % 80.5 % (40.0-76.0); PLATELET 251 x1000/uL (130-400); RED BLOOD CELL COUNT 3.95 mill/uL (4.2-5.4); RED CELL DISTRIBUTION WIDTH 14.3 % (11.6-14.6); WHITE BLOOD COUNT 12.1 x1000/uL (4.5-11.0)
[2023-03-05 05:36] LABS: CHLORIDE 110 mEq/L (98-107); INDEX HEMOLYSI 1 (1-3); INDEX ICTERIC 1 (1-4); INDEX LIPEMIC 1 (1-3); POTASSIUM 3.7 mEq/L (3.5-5.1); SODIUM 140 mEq/L (136-145)
[2023-03-05 05:46] LABS: ALANINE AMINOTRANSFERASE 24 IU/L (13-61); ALBUMIN 3.7 g/dL (3.4-5.0); ASPARTATE AMINOTRANSFERASE 26 IU/L (15-37); BILIRUBIN TOTAL 0.7 mg/dL (0.1-1.0); CALCIUM 8.5 mg/dL (8.5-10.1); CARBON DIOXIDE 22 mEq/L (21-32); GLUCOSE 110 mg/dL (70-105); PROTEIN TOTAL 7.8 g/dL (6.0-8.3); TROPONIN I HIGH SENSITIVITY 7 ng/L (<54); UREA NITROGEN BLOOD 17 mg/dL (7-21)
== END 2023-03-05 07:13 | disposition home or self-care (01) ==
LOC: ER 03:03
DX: R07.89 Other chest pain (principal); F19.90 Other psychoactive substance use, unspecified, uncomplicated; F14.10 Cocaine abuse, uncomplicated; F15.10 Other stimulant abuse, uncomplicated; I11.0 Hypertensive heart disease with heart failure; I50.9 Heart failure, unspecified; Z88.0 Allergy status to penicillin; Z88.5 Allergy status to narcotic agent; Z79.899 Other long term (current) drug therapy
CPT/HCPCS: 36415; 71045; 80053; 84484; 85025; 93005; 99285

== ENCOUNTER 2023-09-08 01:23 | Emergency (ER) | payer OTHER ==
[~2023-09-08] VITALS: Ht 157.5 cm; Wt 63.5 kg
[2023-09-08 01:32] VITALS: O2SAT 99
[2023-09-08 02:04] LABS: CHLORIDE 110 mEq/L (98-107); POTASSIUM 3.6 mEq/L (3.5-5.1); SODIUM 142 mEq/L (136-145)
[2023-09-08 02:05] LABS: CARBON DIOXIDE 21 mEq/L (21-32)
[2023-09-08 02:06] LABS: CALCIUM 9.2 mg/dL (8.7-10.4)
[2023-09-08 02:07] LABS: EOSINOPHILS % 3.8 % (0.0-5.0); HEMATOCRIT. 38.1 % (36.0-48.0); HEMOGLOBIN. 12.9 g/dL (12.0-16.0); MEAN CORPUSCULAR HEMOGLOBIN 31.7 pg (28.0-32.0); MEAN CORPUSCULAR VOLUME 93.3 fL (81.0-99.0); MEAN PLATELET VOLUME 9.9 fl (7.4-10.4); MONOCYTES % 6.8 % (2.0-8.0); NEUTROPHILS % 64.4 % (40.0-76.0); PLATELET 256 x1000/uL (130-400); RED BLOOD CELL COUNT 4.08 mill/uL (4.2-5.4); RED CELL DISTRIBUTION WIDTH 14.3 % (11.6-14.6); WHITE BLOOD COUNT 12.8 x1000/uL (4.5-11.0)
[2023-09-08 02:10] LABS: CREATININE 1.4 mg/dL (0.6-1.0); GLUCOSE 102 mg/dL (70-105); UREA NITROGEN BLOOD 34 mg/dL (9-23)
[2023-09-08 02:12] LABS: ALANINE AMINOTRANSFERASE 51 IU/L (10-49); ALBUMIN 4.7 g/dL (3.2-4.8); ASPARTATE AMINOTRANSFERASE 80 IU/L (<34)
[2023-09-08 02:13] LABS: BILIRUBIN TOTAL 1.1 mg/dL (0.1-1.0); ETHANOL BLOOD < 10 mg/dL (<10); PROTEIN TOTAL 8.5 g/dL (6.0-8.3)
[2023-09-08 02:14] LABS: ACETAMINOPHEN < 2 ug/mL (10-30)
[2023-09-08 06:53] LABS: CLARITY URINE CLEAR (CLEAR); COLOR URINE YELLOW (YELLOW); GLUCOSE URINE NEGATIVE (NEGATIVE); KETONES URINE 1+ (NEGATIVE); LEUKOCYTE ESTERASE URINE 2+ (NEGATIVE); NITRITE URINE NEGATIVE (NEGATIVE); OCCULT BLOOD URINE NEGATIVE (NEGATIVE); PROTEIN URINE 1+ (NEGATIVE); SPECIFIC GRAVITY URINE 1.026 (1.005-1.030)
[2023-09-08 07:05] LABS: *AMPHETAMINES SCREEN URINE NEGATIVE (NEGATIVE); *BARBITURATES SCREEN URINE NEGATIVE (NEGATIVE); *BENZODIAZEPINES SCREEN URINE NEGATIVE (NEGATIVE); *COCAINE SCREEN URINE PRESUMPTIVE POSITIVE (NEGATIVE); CANNABINOID URINE SCREEN NEGATIVE (NEGATIVE); ECSTASY MDMA SCREEN URINE NEGATIVE (NEGATIVE); METHADONE URINE SCREEN Neg (NEGATIVE); OPIATES URINE SCREEN NEGATIVE (NEGATIVE); PHENCYCLIDINE URINE SCREEN NEGATIVE (NEGATIVE)
[2023-09-08 07:13] LABS: BACTERIA URINE 1+; RBC URINE NONE SEEN /hpf (0-2); SQUAMOUS EPITHELIAL CELL URINE 1+ /lpf (RARE/1+); TRICHOMONAS URINE 1+
[2023-09-08] MEDS: NITROFURANTOIN 100MG M/M CAPSULE PO NR (09:19)
[2023-09-08 17:26] VITALS: BP 111/78; PULSE 82; RESP 16; TEMP 97.9
[2023-09-08] MEDS ORDERED: NITROFURANTOIN 100MG M/M CAPSULE PO SCH (21:00)
== END 2023-09-08 17:52 ==
LOC: ER 01:23
DX: R45.851 Suicidal ideations (principal); I10 Essential (primary) hypertension; F14.10 Cocaine abuse, uncomplicated; F15.10 Other stimulant abuse, uncomplicated; Z79.899 Other long term (current) drug therapy; Z20.822 Contact with and (suspected) exposure to COVID-19
CPT/HCPCS: 36415; 80053; 80305; 80307; 80320; 80329; 81003; 85025; 87426; 99285; G0480